=== PATIENT | male | born 1930 | race Caucasian/White ===

== ENCOUNTER 2017-12-02 08:13 | Outpatient (CLI) | payer MEDICARE ==
--- NOTE | 2017-12-02 12:24 | PET ---
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 Status post surgery and radiation therapy. Exam requested for restaging. TECHNIQUE: PET scanning with CT attenuation correction was performed from the vertex through the proximal thighs following the intravenous administration of 10.3 mCi [id number] in the right hand. Imaging was performe d after an uptake interval of 50 minutes. COMPARISON: PET CT report dated 08/04/17 from [facility]. Images not available for evaluation. FINDINGS: No kristen hypermetabolism is seen in the neck, chest, axilla, abdomen, or pelvis. No hypermetabolic pu lmonary nodules, liver, or adrenal lesions are seen. There is continued hypermetabolic activity in the left side of the sternal manubrium with a SUV of 6. 2 (previously 8.5) and in the anterolateral aspect of the left 6th rib with a SUV of 6 (previously 9. 1). New hypermetabolic lesion is seen in the T10 vertebral body with a SUV of 7. Foci of increased FD G localization are also seen at T12, right iliac and right ischial bones, with a SUV of about 3 in th karen lesions. Physiologic activity is seen in the brain, and GI and tracts. The CT scan used for attenuation correction demonstrates no evidence of pleural effusions or ascites. IMPRESSION: Interval worsening of osseous metastatic disease since 08/04/17. POS: [facility]
== END 2017-12-02 08:14 | disposition home or self-care (01) ==
LOC: PET 08:13
PROVIDERS: ATTEND Internal Medicine Hematology & Oncology
DX: C07 Malignant neoplasm of parotid gland (principal); C79.51 Secondary malignant neoplasm of bone
CPT/HCPCS: 78815; A9552

== ENCOUNTER 2017-12-05 05:36 | Emergency (ER) | payer MEDICARE ==
[2017-12-05] MEDS ORDERED: HYDROcodone/Acetaminophen 5/325 mg Tablet ONE (06:03)
--- NOTE | 2017-12-05 08:08 | CT ---
PRELIMINARY REPORT/[facility]/EMERGENCY AFTER HOURS PROCEDURE: EXAM: CT Head Without Intravenous Contrast CLINICAL HISTORY: 87 years old, male; Pain and injury or trauma; Fall; Initial encounter; Concussion / head injury; Wit hout loss of consciousness; Injury date: 12/04/17; Injury details: No prev. Fall without loc at 1400; Not due to dizziness, due to elevation change; reports patient hit his head at time of incident . C/O neck and left clavicle pain. H/o squamous cell carcinoma and partodic gland excision with osseo us mets to the neck. 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 Coronal and sagittal reformatted images were created and reviewed. COMPARISON: No relevant prior studies available. FINDINGS: Diffuse cerebral volume loss. Chronic small vessel disease. No intracranial hemorrhage or hydrocephalus. No mass, mass effect or midline shift. Ventricles, cortical sulci and basal cisterns are without effacement. Car-white matter differentiation is preserved. No dense MCA sign. Status post bilateral cataract surgeries. Paranasal sinuses are clear. Postsurgical changes in the right mastoid. No acute fracture. Extra calvarial soft tissues unremarkable. IMPRESSION: No acute intracranial abnormality. Thank you for allowing us to participate in the care of your patient. Dictated and Authenticated by: Maxime Carson MD 12/05/2017 7:16 AM Central Time ([place] & [place]) FINAL REPORT EMERGENCY AFTER HOURS NONCONTRAST CT HEAD: Date: 12/05/17 HISTORY: Dizziness. Fall. Patient's reports patient hit head at time of incident. Patient has neck pain. History of squamous cell carcinoma. IMPRESSION: 1. No acute intracranial abnormality is demonstrated. 2. Mild chronic small vessel ischemic changes. 3. Postsurgical changes involving the mastoid portion of the right temporal bone and adjacent soft t issues including resection of the visualized portions of the right parotid gland. 4. Metallic device right temporo-occipital region which is implanted within the calvarium at this le neida. This was also seen on the PET CT exam on 12/02/17. Findings are in agreement with the preliminary report by [facility]. POS: [facility]
--- NOTE | 2017-12-05 08:10 | CT ---
PRELIMINARY REPORT/[facility]/EMERGENCY AFTER HOURS PROCEDURE: EXAM: CT Cervical Spine Without Intravenous Contrast CLINICAL HISTORY: 87 years old, male; Pain and injury or trauma; Fall; Initial encounter; Concussion /head injury; Neck pain; Injury date: 12/04/17; Injury details: No prev. Fall without loc at 1400; Not due to dizziness , due to elevation change; reports patient hit his head at time of incident. C/O neck and left clavicl e pain. H/o squamous cell carcinoma and partodic gland excision with osseous mets to the neck. 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 Coronal and sagittal reformatted images were created and reviewed. COMPARISON: No relevant prior studies available. FINDINGS: Vertebrae: Multilevel degenerative changes consisting of disk space height loss, endplate sclerosis a nd osteophytosis, uncovertebral hypertrophy and facet arthrosis. No acute fracture. Discs/spinal canal/neural foramina: No high grade spinal canal stenosis. Soft tissues: Postsurgical changes in the right side of the neck. Vasculature: Vascular calcifications. Lymph nodes: Scattered nonspecific bilateral lymph nodes are present. Mastoid air cells: Postsurgical changes from prior mastoidectomy on the right. Lung apices: Unremarkable. IMPRESSION: No acute cervical spine fracture. Thank you for allowing us to participate in the care of your patient. Dictated and Authenticated by: Maxime Carson MD 12/05/2017 6:58 AM Central Time ([place] & [place]) FINAL REPORT EMERGENCY AFTER HOURS CT SCAN CERVICAL SPINE: Date: 12/05/17 HISTORY: Patient with fall and loss of consciousness at 1400 hours. Patient's reports patient hit head at time of incident. Patient complains of neck pain, as well as left clavicle pain. IMPRESSION: 1. Multilevel degenerative changes in the cervical spine without evidence of a fracture or subluxati on. 2. Postsurgical changes related to resection of the mastoid portion of the right temporal bone, as w ell as the right parotid gland, with multiple surgical clips right aspect of the neck. 3. Subcentimeter increased density nodule right lobe of thyroid gland which cannot be further charac terized on this exam. Findings are in agreement with the preliminary report by [facility]. POS: [facility]
--- NOTE | 2017-12-05 08:12 | RAD ---
RADIOGRAPH CHEST 2 VIEWS: HISTORY: 87-year-old male status post acute chest trauma from fall. FINDINGS: There is no air space density, pulmonary edema, pleural effusion, pneumothorax, or cardiomegaly. IMPRESSION: No acute cardiopulmonary findings. thelma [] POS: [facility]
--- NOTE | 2017-12-05 08:13 | RAD ---
RADIOGRAPH LEFT CLAVICLE 2 VIEWS: Date: 12/05/17 Time: 0624 hours HISTORY: 87-year-old male status post acute trauma to the left clavicle from fall. FINDINGS: There is no fracture of the clavicle. Moderate degenerative changes at AC joint. Somewhat severe DJD at glenohumeral joint. IMPRESSION: 1. No acute clavicular fracture. 2. 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 POS: [facility]
== END 2017-12-05 07:28 | disposition home or self-care (01) ==
LOC: SCSER 05:36
DX: S40.012A Contusion of left shoulder, initial encounter (principal); I10 Essential (primary) hypertension; W17.89XA Other fall from one level to another, initial encounter
CPT/HCPCS: 70450; 71046; 72125